=== PATIENT | male | born 1990 | race Asian ===

== ENCOUNTER 2019-04-21 14:06 | Emergency (ER) | payer OTHER ==
[~2019-04-21] VITALS: Ht 173 cm; Wt 65.0 kg
[2019-04-21 14:11] VITALS: BP 152/76; TEMP 97.3
[2019-04-21 15:09] LABS: HEMATOCRIT 45.8 % (42.0-52.0); HEMOGLOBIN 15.7 g/dl (13.5-18.0); MEAN CELL VOLUME 91 fl (80.0-100.0); MEAN CORPUSCULAR HEMOGLOBIN 31 pg (27.0-31.0); MEAN CORPUSCULAR HGB CONC 34 g/dl (33.0-37.0); MEAN PLATELET VOLUME 10.5 fl (7.4-10.4); PLATELET COUNT 175 K/mm3 (130-400); RED BLOOD COUNT 5.02 M/mm3 (4.20-5.60)
[2019-04-21 15:14] LABS: ALBUMIN 4.4 gm/dL (3.5-5.0); BILIRUBIN,TOTAL 0.8 mg/dL (0.0-1.0); CALCIUM 10.1 mg/dL (8.4-10.2); CREATININE, serum 0.92 (0.66-1.25); INR 0.9 (0.8-3.0); POTASSIUM 4.1 mmol/L (3.4-5.0); PROTHROMBIN TIME 10.8 SECONDS (9.7-12.8); TOTAL PROTEIN 7.5 gm/dL (6.4-8.2)
[2019-04-21] MEDS ORDERED: ANUSOL-HC2.5% RC (15:43)
[2019-04-21] MEDS ORDERED: MIRALAX238G PO (15:43)
[2019-04-21] MEDS ORDERED: DULCOLAX STOOL100 MG PO (15:43)
[2019-04-21 16:07] VITALS: PULSE 84
== END 2019-04-21 16:07 | disposition home or self-care (01) ==
LOC: COL.ER 14:06
PROVIDERS: Emergency Medicine
DX: K64.4 Residual hemorrhoidal skin tags (principal)

== ENCOUNTER 2019-05-27 18:59 | Emergency (ER) | payer OTHER ==
[~2019-05-27] VITALS: Ht 172 cm; Wt 62.0 kg
[~2019-05-27 18:59] MED LIST: ANUSOL-HC2.5% RC; DULCOLAX STOOL100 MG PO; MIRALAX238G PO
[2019-05-27 19:05] VITALS: TEMP 98.3
[2019-05-27 19:43] LABS: BASO % 0.3 % (0.0-2.0); EOS # 0.1 (0.0-0.7); GRAN # 3.6 (1.4-6.5); GRAN % 57.8 % (42.2-75.2); HEMATOCRIT 42.4 % (42.0-52.0); HEMOGLOBIN 14.6 g/dl (13.5-18.0); LYMPH % 32.3 % (20.0-51.0); MEAN CELL VOLUME 91 fl (80.0-100.0); MEAN CORPUSCULAR HEMOGLOBIN 31 pg (27.0-31.0); MEAN CORPUSCULAR HGB CONC 34 g/dl (33.0-37.0); MEAN PLATELET VOLUME 10.6 fl (7.4-10.4); MONO # 0.5 (0.1-0.6); MONO % 8.4 % (1.7-9.3); PLATELET COUNT 177 K/mm3 (130-400); RED BLOOD COUNT 4.65 M/mm3 (4.20-5.60); REDCELL DISTRIBUTION WIDTH-CV 10.8 % (11.5-14.5)
[2019-05-27 19:54] LABS: ALANINE AMINOTRANSFERASE 40 U/L (21-72); ALBUMIN 4.4 gm/dL (3.5-5.0); ALKALINE PHOSPHATASE 56 U/L (50-136); ANION GAP 12 mmol/L (7-16); AST,SGOT 25 U/L (15-37); BILIRUBIN,TOTAL 0.9 mg/dL (0.0-1.0); BLOOD UREA NITROGEN 19 mg/dL (9-20); CALCIUM 9.4 mg/dL (8.4-10.2); CARBON DIOXIDE 28 mmol/L (22-30); CHLORIDE 102 mmol/L (98-107); CREATININE, serum 0.82 (0.66-1.25); GLUCOSE 81 mg/dL (74-106); POTASSIUM 4.2 mmol/L (3.4-5.0); SODIUM 141 mmol/L (137-145); TOTAL PROTEIN 7.5 gm/dL (6.4-8.2)
[2019-05-27 20:08] LABS: TROPONIN-I < 0.012 ng/mL (0.000-0.035)
[2019-05-27] MEDS ORDERED: ATIVAN 0.50.5 MG/TAB PO (20:36)
[2019-05-27 21:12] VITALS: BP 130/84; PULSE 84
== END 2019-05-27 21:12 | disposition home or self-care (01) ==
LOC: COL.ER 18:59
PROVIDERS: Emergency Medicine
DX: R00.2 Palpitations (principal); I48.91 Unspecified atrial fibrillation

== ENCOUNTER 2019-05-29 14:39 | Emergency (ER) | payer OTHER ==
[~2019-05-29] VITALS: Ht 172.7 cm; Wt 62.0 kg
[~2019-05-29 14:39] MED LIST changes: +ATIVAN 0.50.5 MG/TAB PO
[2019-05-29 15:15] LABS: BASO % 0.2 % (0.0-2.0); GRAN # 3.8 (1.4-6.5); GRAN % 78.8 % (42.2-75.2); HEMATOCRIT 40.9 % (42.0-52.0); LYMPH # 0.7 (1.2-3.4); LYMPH % 14.7 % (20.0-51.0); MEAN CELL VOLUME 92 fl (80.0-100.0); MEAN CORPUSCULAR HEMOGLOBIN 32 pg (27.0-31.0); MEAN CORPUSCULAR HGB CONC 34 g/dl (33.0-37.0); MEAN PLATELET VOLUME 10.5 fl (7.4-10.4); MONO # 0.3 (0.1-0.6); MONO % 6.1 % (1.7-9.3); PLATELET COUNT 166 K/mm3 (130-400); RED BLOOD COUNT 4.45 M/mm3 (4.20-5.60); REDCELL DISTRIBUTION WIDTH-CV 10.9 % (11.5-14.5)
[2019-05-29 15:28] LABS: ALBUMIN 4.1 gm/dL (3.5-5.0); BILIRUBIN,TOTAL 0.8 mg/dL (0.0-1.0); CALCIUM 8.7 mg/dL (8.4-10.2); CREATININE, serum 0.8 (0.66-1.25); TOTAL PROTEIN 6.8 gm/dL (6.4-8.2)
[2019-05-29 15:40] LABS: C-REACTIVE PROTEIN < 0.5 mg/dL (0.0-0.9)
[2019-05-29 15:43] LABS: PROLACTIN 20.1 ng/mL (3.7-17.9)
[2019-05-29 15:49] LABS: TROPONIN-I < 0.012 ng/mL (0.000-0.035)
[2019-05-29 16:30] LABS: TRICYCLIC ANTIDEPRESS URINE NEGATIVE
[2019-05-29 17:20] VITALS: BP 130/70; PULSE 103; TEMP 98.6
[2019-05-29] MEDS ORDERED: KEPPRA 500MG500 MG PO ×2 (17:57)
[2019-05-29] MEDS ORDERED: TOPAMAX 25MG25 M1 PO (23:31)
== END 2019-05-29 18:07 | disposition home or self-care (01) ==
LOC: COL.ER 14:39 → EDBD 14:41 → COL.ER 14:41
PROVIDERS: Emergency Medicine
DX: R25.1 Tremor, unspecified (principal); R41.82 Altered mental status, unspecified
CPT/HCPCS: J1953; J2060

== ENCOUNTER 2019-05-29 20:25 | Observation (INO) | payer OTHER ==
[~2019-05-29] VITALS: Ht 182.9 cm; Wt 66.1 kg
[~2019-05-29 20:25] MED LIST changes: +KEPPRA 500MG500 MG PO
[2019-05-29] MEDS ORDERED: TOPAMAX 25MG25 M1 PO (23:31)
--- NOTE | 2019-05-30 00:17 | NUR ---
Report called from ED by JULIO Avila. Patient will be brought up shortly.
--- NOTE | 2019-05-30 00:35 | NUR ---
Patient arrives via wheelchair at this time. Requires assistance of two to get into bed. Patient is very unsteady on his feet. Assessment complete. Lungs are clear bilaterally in all parry. HR and rhythm regular with normal S1 and S2 heard. Bowel sounds active x4. Patient has no complaints of pain. Patient is very hard to understand and he understands little armenian. Communication is hard. Attempted to explain that patient needs to call before getting up, every time. Explained call light. Oriented to room and unit. No further needs at this time. Will continue to monitor. Call light within reach.
[2019-05-30 00:43] VITALS: BP 132/77; PULSE 65; TEMP 98
[2019-05-30 03:29] VITALS: BP 101/54; PULSE 63; TEMP 98
[2019-05-30 07:36] LABS: BASO % 0.3 % (0.0-2.0); EOS # 0.1 (0.0-0.7); GRAN # 3.2 (1.4-6.5); GRAN % 55.2 % (42.2-75.2); HEMATOCRIT 39.6 % (42.0-52.0); HEMOGLOBIN 13.4 g/dl (13.5-18.0); LYMPH % 33.9 % (20.0-51.0); MEAN CELL VOLUME 93 fl (80.0-100.0); MEAN CORPUSCULAR HEMOGLOBIN 32 pg (27.0-31.0); MEAN CORPUSCULAR HGB CONC 34 g/dl (33.0-37.0); MEAN PLATELET VOLUME 10.6 fl (7.4-10.4); MONO # 0.6 (0.1-0.6); MONO % 9.4 % (1.7-9.3); PLATELET COUNT 154 K/mm3 (130-400); RED BLOOD COUNT 4.24 M/mm3 (4.20-5.60); REDCELL DISTRIBUTION WIDTH-CV 11.2 % (11.5-14.5)
[2019-05-30 07:43] LABS: ALBUMIN 3.6 gm/dL (3.5-5.0); BILIRUBIN,TOTAL 1.4 mg/dL (0.0-1.0); CALCIUM 8.6 mg/dL (8.4-10.2); CREATININE, serum 0.71 (0.66-1.25); TOTAL PROTEIN 6.1 gm/dL (6.4-8.2)
[2019-05-30 07:59] VITALS: BP 104/74; PULSE 86; TEMP 98
--- NOTE | 2019-05-30 08:52 | NUR ---
Helped pt back to bed, pt was very unsteady on his feet. Pt AAOX4, drowsy but awakens to verbal stimuli. Breathing even and unlabored, denies any shortness of breath. Breath sounds clear. Denies any pain at this time. Hand web portal developer equal, equal strength in extremeties. No edema noted. Pt NPO at this time. Reminded pt to call if he needs to get up. Will contiue to monitor. Call light in reach.
--- NOTE | 2019-05-30 09:36 | NUR ---
MANFRED met with the patient and patient's friend, Nani, to discuss discharge plan. The patient lives alone in [place]. He moved here two months ago from [place] for a scholarship at [employer]. He states that all his family is back in [place]. He reports independence with ADLs and does not have any DME. The patient does not have a PCP or a clinic that he follows up at. MANFRED discussed primary care options in [place]. The patient did not have a preference at this time. He receives his medications at the [facility] in [facility] and he reports no difficulties obtaining his meds. The patient plans to return home upon discharge. SW to continue to follow.
--- NOTE | 2019-05-30 10:00 | NUR ---
Pysch consult not called due to no pysch senior solutions engineer.
--- NOTE | 2019-05-30 10:14 | NUR ---
Went in to give pt Kejenniferra, pt said he would not take it since he had it in ED and it made him not be able to walk. Will inform Dr. Joyce.
[2019-05-30 11:27] VITALS: BP 121/77; PULSE 82; TEMP 98.1
--- NOTE | 2019-05-30 13:00 | NUR ---
Pt lying in bed, AAOx3. Gait is steadier than previous. Ordered pt a general tray. Denies any dizziness.
--- NOTE | 2019-05-30 14:29 | NUR ---
Pt in bed, lunch tray in room. Pt denies dizziness, AAOX3.
[2019-05-30 18:04] VITALS: BP 126/69; PULSE 86; TEMP 98.6
--- NOTE | 2019-05-30 18:16 | NUR ---
Pt up to bathroom, steady gait observed. Denies any needs at this time.
--- NOTE | 2019-05-30 20:59 | NUR ---
PT IN BED WITH HOB AT 60 DEGREE ANGLE. FAMILY AND FRIENDS VISITING, ALSO, THEY BROUGHT LOTS OF FOOD FOR EVERYONE. PT ON CELLPHONE TEXTING AND IS A/O X4. PT DENIES PAIN OR DISCOMFORT AND HAS NO NEEDS AT THIS TIME, CALL LIGHT WITHIN REACH.
--- NOTE | 2019-05-30 23:32 | NUR ---
PT WAS WANTING A CARDIOLOGY CONSULT. PT'S MOTHER AND FATHER HAS CARIO HISTORY, BECAUSE MOTHER AND FATHER HAS HISTORY OF A-FIB HE WANTED TO BE CHECKED OUT WELL FOR THAT. ADVISED THAT THERE WAS NO CARDIOLOGY CONSULT.
[2019-05-31 00:30] VITALS: BP 129/75; PULSE 75; TEMP 97.5
[2019-05-31 04:18] VITALS: BP 114/73; PULSE 73; TEMP 98.8
--- NOTE | 2019-05-31 07:04 | NUR ---
PT SLEPT/RESTED WELL DURING THE NIGHT, WITH NO C/O PAIN OR DISCOMFORT. PT WAS UNAWARE THAT HE WAS GOING TO HAVE A LUMBAR PUNCTURE. ADVISED THAT THE DOCTOR WOULD HAVE TO EXPLAIN IT TO HIM. PT THINKS THAT HE IS GOING FOR SURGERY OF SOMEKIND. TRIED TO TELL HIM IT WAS JUST A TEST. PT IN BED WITH HOB ELEVATED TO 45 DEGREE ANGLE AND NO NEEDS AT THIS TIME. CALL LIGHT WITHIN REACH. AND CARE TRANSFERED OVER TO LOKESH KIM.
[2019-05-31 07:40] LABS: BASO % 0.4 % (0.0-2.0); EOS # 0.1 (0.0-0.7); EOS % 0.9 % (0-4.0); GRAN % 53.6 % (42.2-75.2); HEMATOCRIT 40.5 % (42.0-52.0); HEMOGLOBIN 13.9 g/dl (13.5-18.0); LYMPH % 36.9 % (20.0-51.0); MEAN CELL VOLUME 92 fl (80.0-100.0); MEAN CORPUSCULAR HEMOGLOBIN 32 pg (27.0-31.0); MEAN CORPUSCULAR HGB CONC 34 g/dl (33.0-37.0); MEAN PLATELET VOLUME 10.9 fl (7.4-10.4); MONO # 0.4 (0.1-0.6); PLATELET COUNT 169 K/mm3 (130-400); RED BLOOD COUNT 4.41 M/mm3 (4.20-5.60); REDCELL DISTRIBUTION WIDTH-CV 10.9 % (11.5-14.5)
[2019-05-31 08:09] LABS: ALBUMIN 3.8 gm/dL (3.5-5.0); BILIRUBIN,TOTAL 1.1 mg/dL (0.0-1.0); CALCIUM 8.7 mg/dL (8.4-10.2); CREATININE, serum 0.83 (0.66-1.25); POTASSIUM 3.6 mmol/L (3.4-5.0); TOTAL PROTEIN 6.6 gm/dL (6.4-8.2)
[2019-05-31 08:37] LABS: GLUCOSE,CSF 57 mg/dL (40-70); TOTAL PROTEIN,CSF 27 mg/dL (15-45)
--- NOTE | 2019-05-31 08:50 | NUR ---
Pt awake and alert upon entry, no C/O pain at this time, shift assessments complete, left Pt call light in reach, bed in lowest position.
[2019-05-31 08:59] LABS: CSF APPEARANCE CLEAR; CSF COLOR COLORLESS; CSF MONONUCLEAR 100 % (70-100); CSF POLYMORPHONUCLEAR 0 % (0-6); CSF RBC 1 /mm3 (0-0)
[2019-05-31 11:30] VITALS: BP 123/78; PULSE 69; TEMP 98.4
[2019-05-31] MEDS ORDERED: TOPAMAX 25MG25 M1 PO (13:21)
[2019-05-31] MEDS ORDERED: TOPAMAX50 MG PO (13:22)
--- NOTE | 2019-05-31 17:24 | NUR ---
Pt discharged to home, escorted to curbside, left by private auto.
[2019-06-03 13:03] LABS: IGG/ALBUMIN SERUM 0.19 (<=0.40)
[2019-06-03 13:25] LABS: ALBUMIN CSF 20.7 mg/dL (<=27.0); CSF IGG/ALBUMIN 0.12 (<=0.21); CSF SYNTHESIS RATE 2.25 mg/24 h (<=12); CSF,IGG 2.4 mg/dL (<=8.1); CSF-IGG INDEX 0.63 (<=0.85)
== END 2019-05-31 17:25 | disposition home or self-care (01) ==
LOC: COL.ER 20:25 → MEDICAL 05-30 00:04
PROVIDERS: Nurse Practitioner; Nurse Practitioner Family; Psychiatry & Neurology Neurology; ADMIT Hospitalist
DX: R41.82 Altered mental status, unspecified (principal); R55 Syncope and collapse; R25.1 Tremor, unspecified; R94.31 Abnormal electrocardiogram [ECG] [EKG]; Z82.3 Family history of stroke; Z83.3 Family history of diabetes mellitus; Z79.899 Other long term (current) drug therapy
CPT/HCPCS: 99222-AI; 99239; A9585; G0378; J1650; J2060; J7030

== ENCOUNTER 2019-06-06 23:27 | Emergency (ER) | payer OTHER ==
[~2019-06-06] VITALS: Ht 172 cm; Wt 63.6 kg
[~2019-06-06 23:27] MED LIST changes: +TOPAMAX 25MG25 M1 PO; +TOPAMAX50 MG PO
[2019-06-06 23:35] VITALS: TEMP 97.4
[2019-06-07] MEDS ORDERED: ZOFRAN ODT4 MG PO (01:34)
[2019-06-07 01:54] VITALS: BP 122/86; PULSE 85
== END 2019-06-07 01:45 | disposition home or self-care (01) ==
LOC: COL.ER 23:27
DX: G97.1 Other reaction to spinal and lumbar puncture (principal)
CPT/HCPCS: J1885; J7030

== ENCOUNTER 2019-06-12 13:45 | Emergency (ER) | payer OTHER ==
[~2019-06-12] VITALS: Ht 172 cm; Wt 62.0 kg
[~2019-06-12 13:45] MED LIST changes: +ZOFRAN ODT4 MG PO
[2019-06-12 13:48] VITALS: TEMP 99.3
[2019-06-12 14:19] LABS: BASO % 0.6 % (0.0-2.0); EOS % 0.4 % (0-4.0); GRAN # 3.4 (1.4-6.5); GRAN % 68.8 % (42.2-75.2); HEMATOCRIT 43.2 % (42.0-52.0); HEMOGLOBIN 14.5 g/dl (13.5-18.0); LYMPH # 1.1 (1.2-3.4); LYMPH % 22.7 % (20.0-51.0); MEAN CELL VOLUME 94 fl (80.0-100.0); MEAN CORPUSCULAR HEMOGLOBIN 31 pg (27.0-31.0); MEAN CORPUSCULAR HGB CONC 34 g/dl (33.0-37.0); MEAN PLATELET VOLUME 10.4 fl (7.4-10.4); MONO # 0.4 (0.1-0.6); MONO % 7.5 % (1.7-9.3); PLATELET COUNT 189 K/mm3 (130-400); RED BLOOD COUNT 4.62 M/mm3 (4.20-5.60)
[2019-06-12 14:39] LABS: ALANINE AMINOTRANSFERASE 30 U/L (21-72); ALBUMIN 4.2 gm/dL (3.5-5.0); ALKALINE PHOSPHATASE 43 U/L (50-136); ANION GAP 9 mmol/L (7-16); AST,SGOT 28 U/L (15-37); BILIRUBIN,TOTAL 0.6 mg/dL (0.0-1.0); BLOOD UREA NITROGEN 20 mg/dL (9-20); CALCIUM 9.1 mg/dL (8.4-10.2); CARBON DIOXIDE 29 mmol/L (22-30); CHLORIDE 104 mmol/L (98-107); CREATININE, serum 0.78 (0.66-1.25); GLUCOSE 106 mg/dL (74-106); POTASSIUM 4.3 mmol/L (3.4-5.0); SODIUM 141 mmol/L (137-145)
[2019-06-12 14:41] LABS: C-REACTIVE PROTEIN < 0.5 mg/dL (0.0-0.9)
[2019-06-12 14:44] LABS: COLLECTION METHOD CLEAN CATCH
[2019-06-12 14:52] LABS: PROLACTIN 6.8 ng/mL (3.7-17.9)
[2019-06-12 14:55] LABS: MUCOUS Present /lpf; PH 6 (5-8); SQUAMOUS EPITHELIAL None Seen /hpf; URINE APPEARANCE Clear; URINE BACTERIA None Seen /hpf; URINE BILIRUBIN Negative (NEGATIVE); URINE BLOOD 1+ (NEGATIVE); URINE COLOR Yellow; URINE GLUCOSE Negative (NEGATIVE); URINE KETONE Negative (NEGATIVE); URINE LEUKOCYTE ESTERASE Negative (NEGATIVE); URINE NITRATE Negative (NEGATIVE); URINE PROTEIN(semi-quant) Negative (NEGATIVE); URINE RBC 0-2 /hpf; URINE UROBILINOGEN Negative (NEGATIVE)
[2019-06-12 15:40] VITALS: BP 129/75; PULSE 73
== END 2019-06-12 15:41 | disposition home or self-care (01) ==
LOC: COL.ER 13:45
PROVIDERS: Physician Assistant
DX: R42 Dizziness and giddiness (principal)

== ENCOUNTER 2019-06-23 16:07 | Emergency (ER) | payer OTHER ==
[~2019-06-23] VITALS: Ht 172.7 cm; Wt 62.0 kg
[2019-06-23 17:54] LABS: BASO % 0.4 % (0.0-2.0); EOS # 0.1 (0.0-0.7); EOS % 0.7 % (0-4.0); GRAN # 4.5 (1.4-6.5); GRAN % 61.2 % (42.2-75.2); HEMATOCRIT 44.1 % (42.0-52.0); HEMOGLOBIN 15.1 g/dl (13.5-18.0); LYMPH # 2.2 (1.2-3.4); LYMPH % 29.7 % (20.0-51.0); MEAN CELL VOLUME 92 fl (80.0-100.0); MEAN CORPUSCULAR HEMOGLOBIN 32 pg (27.0-31.0); MEAN CORPUSCULAR HGB CONC 34 g/dl (33.0-37.0); MEAN PLATELET VOLUME 10.2 fl (7.4-10.4); MONO # 0.6 (0.1-0.6); MONO % 7.9 % (1.7-9.3); PLATELET COUNT 185 K/mm3 (130-400); RED BLOOD COUNT 4.78 M/mm3 (4.20-5.60); REDCELL DISTRIBUTION WIDTH-CV 10.6 % (11.5-14.5)
[2019-06-23 18:08] LABS: ALANINE AMINOTRANSFERASE 47 U/L (21-72); ALBUMIN 4.5 gm/dL (3.5-5.0); ALKALINE PHOSPHATASE 52 U/L (50-136); ANION GAP 9 mmol/L (7-16); AST,SGOT 28 U/L (15-37); BILIRUBIN,TOTAL 0.6 mg/dL (0.0-1.0); BLOOD UREA NITROGEN 17 mg/dL (9-20); CALCIUM 9.7 mg/dL (8.4-10.2); CARBON DIOXIDE 31 mmol/L (22-30); CHLORIDE 102 mmol/L (98-107); CREATININE, serum 0.81 (0.66-1.25); GLUCOSE 83 mg/dL (74-106); POTASSIUM 4.1 mmol/L (3.4-5.0); SODIUM 142 mmol/L (137-145); TOTAL PROTEIN 7.4 gm/dL (6.4-8.2)
[2019-06-23 18:09] LABS: C-REACTIVE PROTEIN < 0.5 mg/dL (0.0-0.9)
[2019-06-23 18:44] VITALS: BP 128/77; PULSE 72; TEMP 98.2
== END 2019-06-23 18:45 | disposition home or self-care (01) ==
LOC: COL.ER 16:07
PROVIDERS: Nurse Practitioner
DX: M54.5 Low back pain (principal)
CPT/HCPCS: J1170

== ENCOUNTER 2019-09-27 16:53 | Emergency (ER) | payer OTHER ==
[~2019-09-27] VITALS: Ht 127 cm; Wt 66.0 kg
[2019-09-27 17:08] VITALS: BP 132/82; TEMP 98.7
[2019-09-27 17:35] LABS: STREP SCREEN NEGATIVE
[2019-09-27 17:57] VITALS: PULSE 70
== END 2019-09-27 17:57 | disposition home or self-care (01) ==
LOC: COL.ER 16:53
PROVIDERS: Family Medicine
DX: J06.9 Acute upper respiratory infection, unspecified (principal); K21.9 Gastro-esophageal reflux disease without esophagitis; F17.210 Nicotine dependence, cigarettes, uncomplicated

== ENCOUNTER 2019-10-03 13:23 | Emergency (ER) | payer OTHER ==
[~2019-10-03] VITALS: Ht 172 cm; Wt 66.0 kg
[2019-10-03 13:28] VITALS: BP 132/83; TEMP 98.1
[2019-10-03] MEDS ORDERED: TESSALON PERLE200 MG PO (14:24)
[2019-10-03 14:33] VITALS: PULSE 86
== END 2019-10-03 14:30 | disposition home or self-care (01) ==
LOC: COL.ER 13:23
DX: R05 Cough (principal)

== ENCOUNTER 2019-10-12 00:34 | Emergency (ER) | payer OTHER ==
[~2019-10-12] VITALS: Ht 172 cm; Wt 66.0 kg
[~2019-10-12 00:34] MED LIST changes: +TESSALON PERLE200 MG PO
[2019-10-12 00:39] VITALS: TEMP 97.7
[2019-10-12 01:26] LABS: BASO % 0.3 % (0.0-2.0); EOS # 0.1 (0.0-0.7); GRAN # 3.2 (1.4-6.5); GRAN % 50.8 % (42.2-75.2); HEMATOCRIT 38.6 % (42.0-52.0); HEMOGLOBIN 13.3 g/dl (13.5-18.0); LYMPH # 2.5 (1.2-3.4); LYMPH % 40.8 % (20.0-51.0); MEAN CELL VOLUME 91 fl (80.0-100.0); MEAN CORPUSCULAR HEMOGLOBIN 31 pg (27.0-31.0); MEAN CORPUSCULAR HGB CONC 35 g/dl (33.0-37.0); MEAN PLATELET VOLUME 9.9 fl (7.4-10.4); MONO # 0.4 (0.1-0.6); MONO % 6.9 % (1.7-9.3); PLATELET COUNT 205 K/mm3 (130-400); RED BLOOD COUNT 4.24 M/mm3 (4.20-5.60); REDCELL DISTRIBUTION WIDTH-CV 10.6 % (11.5-14.5)
[2019-10-12 01:36] LABS: ALANINE AMINOTRANSFERASE 42 U/L (21-72); ALBUMIN 4.3 gm/dL (3.5-5.0); ALKALINE PHOSPHATASE 50 U/L (50-136); ANION GAP 7 mmol/L (7-16); AST,SGOT 25 U/L (15-37); BILIRUBIN,TOTAL 0.6 mg/dL (0.0-1.0); BLOOD UREA NITROGEN 18 mg/dL (9-20); CALCIUM 9.1 mg/dL (8.4-10.2); CARBON DIOXIDE 30 mmol/L (22-30); CHLORIDE 104 mmol/L (98-107); CREATININE, serum 1.12 (0.66-1.25); GLUCOSE 147 mg/dL (74-106); MAGNESIUM 2.1 mg/dL (1.6-2.3); POTASSIUM 3.9 mmol/L (3.4-5.0); SODIUM 141 mmol/L (137-145); TOTAL PROTEIN 7.1 gm/dL (6.4-8.2)
[2019-10-12 01:48] LABS: TROPONIN-I < 0.012 ng/mL (0.000-0.035)
[2019-10-12 02:20] VITALS: BP 107/73; PULSE 76
== END 2019-10-12 02:20 | disposition home or self-care (01) ==
LOC: COL.ER 00:34
PROVIDERS: Emergency Medicine
DX: R00.2 Palpitations (principal)